=== PATIENT | female | born 1995 ===

== ENCOUNTER 2023-10-04 05:30 | Day surgery (SDC) | payer OTHER ==
[~2023-10-04 05:30] MED LIST: SPRINTEC 28 DA1 EACH PO
[2023-10-04] MEDS ORDERED: BUPIVACAINE HCL/Mpf 0.5% 10ML VIAL ONE (09:07)
[2023-10-04] MEDS ORDERED: LIDOCAINE HCL 1%/EPINEPHRINE 20ML VIAL IJ ONE (09:07)
[2023-10-04] MEDS ORDERED: CEFTRIAXONE SODIUM 2,000 MG VIAL ONE (09:08)
[2023-10-04] MEDS ORDERED: METRONIDAZOLE/SODIUM CHLORIDE 500 MG/100 ML PIGGYBACK IV ONE (09:08)
[2023-10-04] MEDS ORDERED: HEMOSTATIC MATRIX 1 KIT KIT TOP ONE (09:10)
[2023-10-04] MEDS ORDERED: DIBUCAINE 30 GM TUBE ONE (09:10)
[2023-10-04] MEDS ORDERED: TRAM1TAB98 PO (10:12)
[2023-10-04] MEDS ORDERED: COLACE100 MG PO (10:12)
== END 2023-10-04 14:30 | disposition home or self-care (01) ==
LOC: CIR.AMB 05:30
PROVIDERS: ATTEND Surgery
DX: K64.4 Residual hemorrhoidal skin tags (principal); K60.1 Chronic anal fissure; K62.89 Other specified diseases of anus and rectum; K62.5 Hemorrhage of anus and rectum; K59.09 Other constipation; J32.9 Chronic sinusitis, unspecified